=== PATIENT | female | born 1995 | race African-American/Black ===

== ENCOUNTER 2018-10-29 21:13 | Emergency (ER) | payer MEDICAID, OTHER ==
[~2018-10-29] VITALS: Ht 170.2 cm; Wt 112.0 kg
[2018-10-29 23:05] VITALS: BP 128/85
== END 2018-10-29 23:04 | disposition home or self-care (01) ==
LOC: ER 21:13
DX: J02.9 Acute pharyngitis, unspecified (principal); R11.10 Vomiting, unspecified
CPT/HCPCS: 96372; 99283